=== PATIENT | female | born 1955 | race American Indian/Alaskan Native ===

== ENCOUNTER 2017-01-29 09:01 | Emergency (ER) | payer BC ==
[2017-01-29 09:10] VITALS: BP 110/66; PULSE 70; TEMP 97.9; O2SAT 96
--- NOTE | 2017-01-29 09:31 | C.PDOC ---
Chief Complaint (Nursing): Dizziness/Lightheaded Past Medical History Vital Signs: Last Vital Signs Temp 97.9 F 01/29/17 09:10 Pulse 70 01/29/17 09:10 Resp 20 01/29/17 09:10 BP 110/66 01/29/17 09:10 Pulse Ox 96 01/29/17 09:10 - Medical History PMH: Arthritis, Asthma, Bronchitis, CAD, COPD, HTN, Hypercholesterolemia, Hyperthyroidism, Hypothyroidism Surgical History: Appendectomy, Cholecystectomy, Coronary Stent - Social History Hx Tobacco Use: Yes (heavy smoker) Hx Alcohol Use: No Hx Substance Use: Yes - Immunization History Hx Tetanus Toxoid Vaccination: No Hx Influenza Vaccination: Yes Hx Pneumococcal Vaccination: Yes ED Course And Treatment O2 Sat by Pulse Oximetry: 96 Disposition - Disposition Disposition: HOME/ ROUTINE Disposition Time: 09:28 Condition: GOOD Additional Instructions: take zithromax and gardenia d as directed.Bedrest for 1 day Prescriptions: Azithromycin [Zithromax] 250 mg PO DAILY #4 tab Fexofenadine/Pseudoephedrine [Gardenia-D 12 Hour Tablet] 1 each PO BID #10 tab.er.12h Instructions: Sinusitis (ED) Forms: [facility] (German), Work Excuse - Clinical Impression Clinical Impression: Sinusitis
--- NOTE | 2017-01-29 09:34 | C.PDOC ---
History Of Present Illness 61 year old female presents to Emergency Department for evaluation of mild lightheadedness and nausea since 8:00 this morning. Patient also admits to chills, congestion, cough, pressure in her ears, and post nasal drip. Otherwise , denies room spinning dizziness, headache, vomiting, diarrhea, abdominal pain, or any other associated symptoms at this time. Chief Complaint (Nursing): Dizziness/Lightheaded History Per: Patient History/Exam Limitations: no limitations Onset/Duration Of Symptoms: Hrs Current Symptoms Are (Timing): Still Present Possible Causative Factor(s): denies: Vertigo Fall Associated With With Symptoms: No Recent travel outside of the [place]: No Additional History Per: Patient Past Medical History Reviewed: Historical Data, Nursing Documentation, Vital Signs Vital Signs: Last Vital Signs Temp 97.9 F 01/29/17 09:10 Pulse 70 01/29/17 09:10 Resp 18 01/29/17 09:51 BP 110/66 01/29/17 09:10 Pulse Ox 96 01/29/17 09:46 - Medical History PMH: Arthritis, Asthma, Bronchitis, CAD, COPD, HTN, Hypercholesterolemia, Hyperthyroidism, Hypothyroidism Surgical History: Appendectomy, Cholecystectomy, Coronary Stent Family History: States: Unknown Family Hx - Social History Hx Tobacco Use: Yes (heavy smoker) Hx Alcohol Use: No Hx Substance Use: Yes - Immunization History Hx Tetanus Toxoid Vaccination: No Hx Influenza Vaccination: Yes Hx Pneumococcal Vaccination: Yes Review Of Systems Except As Marked, All Systems Reviewed And Found Negative. Constitutional: Positive for: Fever (subjective), Chills ENT: Positive for: Ear Pain (mild ear pressure), Nose Congestion. Negative for : Ear Discharge, Nose Discharge, Mouth Swelling Cardiovascular: Positive for: Light Headedness. Negative for: Chest Pain, Palpitations, Edema Respiratory: Positive for: Cough. Negative for: Shortness of Breath Gastrointestinal: Positive for: Nausea. Negative for: Vomiting, Abdominal Pain , Diarrhea Musculoskeletal: Negative for: Neck Pain, Back Pain Neurological: Negative for: Headache, Dizziness Physical Exam - Physical Exam Appears: Non-toxic, No Acute Distress Skin: Normal Color, Warm, Dry, No Rash Head: Atraumatic, Normacephalic, Tenderness (maxillary sinuses) Eye(s): bilateral: Normal Inspection, PERRL, EOMI Ear(s): Bilateral: Normal Nose: Normal Oral Mucosa: Moist, Other (handling secretions well) Tongue: Normal Appearing Lips: Normal Appearing Throat: Normal, No Erythema, No Exudate, No Drooling Neck: Normal ROM, Supple Lymphatic: No Adenopathy Chest: Symmetrical Cardiovascular: Rhythm Regular, No Murmur, No Other (no arrhythmia, no extra beats) Respiratory: Normal Breath Sounds, No Rales, No Rhonchi, No Wheezing Gastrointestinal/Abdominal: Soft, No Tenderness Extremity: Normal ROM, No Pedal Edema, Capillary Refill (<2 secs.), No Deformity Extremity: Bilateral: Atraumatic, Normal Color And Temperature Pulses: Left Radial: Normal, Right Radial: Normal Neurological/Psych: Oriented x3, Normal Speech, Normal Cognition, Normal Motor, Normal Sensation, No Other (no pronator drift) Gait: Steady ED Course And Treatment O2 Sat by Pulse Oximetry: 96 (on RA) Pulse Ox Interpretation: Normal Medical Decision Making Medical Decision Making: Patient was given Azithromycin. Disposition - Disposition Referrals: [facility] [Outside] Disposition: HOME/ ROUTINE Disposition Time: 09:28 Condition: GOOD Additional Instructions: take zithromax and gardenia d as directed.Bedrest for 1 day Prescriptions: Azithromycin [Zithromax] 250 mg PO DAILY #4 tab Fexofenadine/Pseudoephedrine [Gardenia-D 12 Hour Tablet] 1 each PO BID #10 tab.er.12h Instructions: Sinusitis (ED) Forms: [facility] (Kuwaiti), Work Excuse Print Language: ROMANSH - Clinical Impression Clinical Impression: Sinusitis - Scribe Statement The provider has reviewed the documentation as recorded by the Hollisibjr Mendez All medical record entries made by the Hollisibjr were at my direction and personally dictated by me. I have reviewed the chart and agree that the record accurately reflects my personal performance of the history, physical exam, medical decision making, and the department course for this patient. I have also personally directed, reviewed, and agree with the discharge instructions and disposition.
[2017-01-29 09:52] VITALS: RESP 18
== END 2017-01-29 09:52 | disposition home or self-care (01) ==
LOC: C.ER 09:01
DX: J32.9 Chronic sinusitis, unspecified (principal); I10 Essential (primary) hypertension; F17.210 Nicotine dependence, cigarettes, uncomplicated